=== PATIENT | male | born 1960 | race Caucasian/White ===

== ENCOUNTER 2021-04-07 12:48 | Emergency (ER) | payer OTHER ==
--- NOTE | 2021-04-07 13:30 | ED Physician Documentation ---
History of Present Illness - Stated complaint Stated Complaint: RINGING EARS - Chief complaint Chief Complaint: General - Additonal information Additional information: 60-year-old male presents emergency department for evaluation of subjective fevers, myalgias headache and ringing in both his ears that began after receiving 3 vaccines 48 hours ago. He reports receiving Tdap, shingles as well as the flu vaccination. He was also resumed on Metformin for concerns that his diabetes has been out of control. He denies that he is having any chest pain cough or congestion. Is fully vaccinated for COVID-19. He denies he has ever had a similar immune response with previous vaccines in the past. 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 He will not elaborate on his employment Meds: Gemfibrozil, statin, Metformin Review of Systems Constitutional: reports: Fever, Chills, Myalgias, Fatigue Eyes: reports: Reviewed and negative Ears: reports: Tinnitus/ringing. denies: Loss of hearing, Ear pain Nose: reports: Reviewed and negative Throat: reports: Reviewed and negative Cardiac: reports: Reviewed and negative Respiratory: reports: Reviewed and negative GI: reports: Diarrhea. denies: Abdominal Pain : denies: Dysuria, Frequency, Hesitancy Skin: reports: Reviewed and negative Musculoskeletal: reports: Reviewed and negative Neurologic: reports: Reviewed and negative PD PAST MEDICAL HISTORY - Past Medical History Past Medical History: Yes Cardiovascular: High cholesterol Respiratory: None Neuro: None Endocrine/Autoimmune: Type 2 diabetes GI: None : None HEENT: None Psych: None Musculoskeletal: None Derm: None - Past Surgical History Past Surgical History: Yes Ortho: Other - Present Medications Home Medications: Ambulatory Orders Medication Instructions Recorded Confirmed Metformin HCl [Glumetza] 04/07/21 gemfibroziL [Lopid] 04/07/21 - Allergies Allergies/Adverse Reactions: Allergies Allergy/AdvReac Type Severity Reaction Status Date / Time No Known Drug Allergies Allergy Verified 04/07/21 13:08 - Social History Does the pt smoke?: Yes Smoking Status: Current every day smoker Does the pt drink ETOH?: No Does the pt have substance abuse?: No - Immunizations Immunizations are current?: Yes PD ED PE EXPANDED - Neck Neck: Supple w/out meningeal sx. No: Adenopathy - Cardiac Cardiac: Regular Rate, Radial strong equal, Pedal strong equal, Cap refill < 2 sec - Respiratory Respiratory: Clear to ausultation anya. No: Distress, Labored - Abdomen Abdomen: Hyperactive BS. No: Tender to palpation - Extremities Extremities: Normal. No: Deformity, Tenderness - Neuro Neuro: Alert and Oriented X 3, CNII-XII intact - GCS Eye Opening: Spontaneous Motor: Obeys Commands Verbal: Oriented Total: 15 Results - Vitals Vitals: Vital Signs - 24 hr 04/07/21 13:04 Temperature 36.6 C Heart Rate 74 Respiratory 15 Rate Blood Pressure 133/74 H O2 Saturation 100 Oxygen O2 Source Room air - Labs Labs: Laboratory Tests 04/07/21 13:50 Sodium 139 Potassium 3.9 Chloride 103 Carbon Dioxide 25 Anion Gap 11.0 BUN 16 Creatinine 0.6 Estimated GFR (MDRD) 138 Glucose 216 H Calcium 9.3 Total Bilirubin 0.5 AST 18 ALT 29 Alkaline Phosphatase 39 L Total Protein 7.5 Albumin 4.3 Globulin 3.2 Albumin/Globulin Ratio 1.3 Lipase 53 H PD MEDICAL DECISION MAKING - ED course Complexity details: reviewed results, d/w patient ED course: 60-year-old male presents emergency department for evaluation of bilateral tinnitus for 24 hours, myalgias headache subjective fevers. This is after receiving 3 different vaccines 48 hours ago. He does endorse some diarrhea. Fully vaccinated for COVID-19. He is also recently started Metformin as he was told he is diabetic. Screening labs today do show an elevated blood glucose but no significant findings suggest DKA. We discussed what a typical immune response can be after multiple vaccines and though patient is hesitant to endorse this thought process he agrees to get plenty of fluids and rest at home and we discussed that if symptoms are not improving over the next 4 to 5 days to then return for a second evaluation. Departure - Departure Disposition: Home, Self Care Clinical Impression: Myalgia Tinnitus Qualifiers: Laterality: bilateral Qualified Code(s): H93.13 - Tinnitus, bilateral Comments: Luis Enrique you are seen in the emergency department today for ringing in both of your ears as well as eyes headache body aches fatigue. These are very common and typical responses to receiving vaccines. Most of the symptoms will resolve over 1 week. It is okay to take Tylenol and ibuprofen at home for any discomfort. Please stay well-hydrated. Your screening labs today do indicate that you are diabetic. It is important that you continue to discuss with your primary care doctor long-term management of this.
[2021-04-07 14:10] LABS: ALBUMIN 4.3 g/dL (3.2-5.5); ALBUMIN/GLOBULIN RATIO 1.3 (1.0-2.2); BILIRUBIN,TOTAL 0.5 mg/dL (0.2-1.0); CALCIUM 9.3 mg/dL (8.5-10.3); CREATININE 0.6 mg/dL (0.6-1.2); POTASSIUM 3.9 mmol/L (3.5-5.0); TOTAL PROTEIN 7.5 g/dL (6.7-8.2)
[2021-04-07 14:32] VITALS: BP 167/84
== END 2021-04-07 14:31 | disposition home or self-care (01) ==
LOC: ED 12:48
DX: H93.13 Tinnitus, bilateral (principal); M79.10 Myalgia, unspecified site; R51.9 Headache, unspecified; R19.7 Diarrhea, unspecified; E11.65 Type 2 diabetes mellitus with hyperglycemia; Z79.84 Long term (current) use of oral hypoglycemic drugs; F17.200 Nicotine dependence, unspecified, uncomplicated
CPT/HCPCS: 36415; 80053; 83690; 99282; 99283